=== PATIENT | female | born 1960 | race Caucasian/White ===

== ENCOUNTER 2022-04-11 09:39 | Emergency (ER) | payer BC, SELFPAY ==
[2022-04-11 09:44] VITALS: BP 130/89; PULSE 78; TEMP 36.5; O2SAT 96; BMI 34.0
[2022-04-11 09:45] VITALS: BP 130/89; PULSE 67; O2SAT 96
--- NOTE | 2022-04-11 10:06 | CRLHL7_ITS ---
For Patients: As a result of the Cures Act, medical imaging exams and procedure reports are released immediately into your electronic medical record. You may view this report before your referring provider. If you have questions, please contact your health care provider. Indication: Injury, pain Technique: Right knee 3 views Comparison: 02/07/2022 Findings: ACL reconstruction hardware intact. Fixation screw in the distal femur also intact. Chronic ossicle laterally measuring 1.3 cm. Medial and lateral compartment spurring. Patellofemoral narrowing and spurring. No large effusion. No fracture. Chronic hypertrophic changes associated with the anterior proximal tibia is similar. Impression: No sign of acute injury. Dictated by Lucho Julio MD @ 04/11/2022 10:55:22 AM (Electronically Signed)
--- NOTE | 2022-04-11 10:09 | ED_ITS ---
HPI - Extremity Injury (Lower) General Date Seen: 04/11/22 Chief Complaint: Extremity Pain/Injury, Lower Stated Complaint: R knee pain Time Seen by Provider: 04/11/22 09:41 Source: patient Mode of arrival: ambulatory Limitations: no limitations History of Present Illness HPI Narrative: Patient is the 61-year-old very pleasant lady who presents here with a right knee injury that occurred while she was getting out of auto mobile 3 days ago. She describes a twist valgus type mechanism, with pain ever since she has noted a little swelling in her knee, the pain seems to be little worse at night time, with a throbbing type component. She has tried ibuprofen, and then 1 dose of Aleve this morning with really no improvement. 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 Past history of 2 previous ACL repairs on this knee, with a tear and subsequent instability of her right knee. She is due to undergo a total knee replacement in the fall by . complaint: knee injury Onset (ago): day(s) Injury: Right: knee Exacerbating factors: weight bearing and movement Associated symptoms: able to partially bear weight and ambulatory Other symptoms: none Treatments prior to arrival: cold therapy and NSAIDS Related Data Home Medications Medication Instructions Recorded Confirmed losartan 25 mg tablet 25 mg PO QDAY 03/03/22 citalopram 40 mg tablet 40 mg PO QDAY 03/04/22 03/04/22 Previous Rx's Medication Instructions Recorded prednisone 20 mg tablet 20 mg PO BID #10 tabs 04/11/22 Allergies Allergy/AdvReac Type Severity Reaction Status Date / Time shellfish derived Allergy Intermediate Vomiting Verified 03/04/22 15:56 Review of Systems Status of ROS: Reports: 6 or more systems reviewed and unremarkable except as noted in History and below [facility] Surgical History History of bunionectomy S/P ACL repair Family History Other Alzheimer's dementia Diabetes Social History Smoking Status: Never smoker Do you use any of these nicotine containing products: None Second hand tobacco smoke exposure: No How often do you have a drink containing alcohol: monthly or less How many standard drinks containing alcohol do you have on a typical day: 1 or 2 How often do you have six or more drinks on one occasion: Never AUDIT-C Alcohol total score: 1 Non-prescribed substance use: denies use Exam Narrative: Exam Narrative: Examination reveals a lady in no apparent distress, sitting talking to me normally, there is obvious swelling of her right knee, I would describe it as moderate, her range of motion of her right knee is to 90? on flexion, extensions full, which she says is not terribly abnormal for which she normally has. She has some tenderness along the joint line notable, her MCL and LCL seem intact, with no give way, ACL is slippery, popliteal fossa is normal, popliteal pulse, posterior tibial pulse are normal, minimal edema noted of the lower leg, hip has excellent range of motion, sensation is normal also. There is no rashes or injury bruising noted. Const: Vital Signs, click to edit/add: Vital Signs - 24 hr 04/11/22 09:44 04/11/22 09:45 Temperature 97.7 F Pulse Rate [Right Pulse Oximeter] 78 67 Blood Pressure [Le ft Upper Arm] 130/89 130/89 Pulse Oximetry 96 96 Oxygen Delivery Me thod Room Air Room Air Documenting provider has reviewed patient's vital signs: yes Common normals: no apparent distress Course Course Hospital Course: I discussed with this nice lady that a knee immobilizer would be helpful, she did not want crutches, I think that is reasonable given she is bearing weight on it, I think use of Aleve twice daily would be important, I did offer her prednisone and gave her prescription, she can not see how it works over the course of the weekend, and fill if as needed. She already has appointment with Orthopedics on Thursday, I have encouraged her to keep this appointment consideration of an injection, Vital Signs Vital signs: Initial Vital Signs Temperature 97.7 F 04/11/22 09:44 Temperature Source Temporal Artery Scan 04/11/22 09:44 Pulse Rate 78 04/11/22 09:44 Blood Pressure 130/89 04/11/22 09:44 Blood Pressure Mean 102 04/11/22 09:44 Blood Pressure Position Sitting 04/11/22 09:44 Pulse Oximetry 96 04/11/22 09:44 Oxygen Delivery Method 04/11/22 09:44 Vital Signs Temperature 97.7 F 04/11/22 09:44 Pulse Rate 78 04/11/22 09:44 Blood Pressure 130/89 04/11/22 09:44 Pulse Oximetry 96 04/11/22 09:44 Oxygen Delivery Method 04/11/22 09:44 Temperature 97.7 F 04/11/22 09:44 Pulse Rate 67 04/11/22 09:45 Blood Pressure 130/89 04/11/22 09:45 Pulse Oximetry 96 04/11/22 09:45 Oxygen Delivery Method 04/11/22 09:45 MDM - Extremity Injury (Lower) MDM Narrative Medical decision making narrative: Consideration of worsening of her ACL, is done, fracture, LCL MCL and PCL strains are also consider, along with other considerations such as DVT or arterial insufficiency. We will go ahead with an x-ray of her right knee, and discussed with her options available. Differential Diagnosis Differential diagnosis: Likely acute internal derangement of knee Medical Records Attestation: I reviewed the patient's medical records. Lab Data Attestation: I reviewed the patient's lab results. Imaging Data Xray: Attestation: I have reviewed the pertinent imaging results. My impression: Chronic changes no evidence of acute fracture Radiologist's impression: Chronic changes noted evidence of acute fracture Discharge Plan Discharge Clinical Impression: Osteoarthritis of right knee Right knee sprain Qualifiers: Encounter type: initial encounter Patient Disposition: Home, Self-Care Condition: Stable Instructions: Knee Sprain (DC), Osteoarthritis (DC) Additional Instructions: Home rest use of knee immobilizer, it is most effective if use it when you sleep also, as you do move your knee, but I can understand if you want to take this off. Icing it 2 to 3 times a day would also be helpful along with the ibuprofen, prescription given for prednisone that you can use if you needed otherwise going in to see orthopedics on Thursday with your appointment would be advantageous to get an injection. Prescriptions: New prednisone 20 mg tablet 20 mg PO BID Qty: 10 0RF No Action losartan 25 mg tablet 25 mg PO QDAY citalopram 40 mg tablet 40 mg PO QDAY Follow Up/Referrals: Provider,Not a Local [Primary Care Provider] - Stand Alone Forms: [employer] Info Instructions
[2022-04-11 11:25] VITALS: BP 109/75; PULSE 65; O2SAT 97
--- NOTE | 2022-04-11 11:26 | ED.NURSE ---
22 Knee Immobilizer applied to pt R knee. Pt tolerates well.
== END 2022-04-11 11:36 | disposition home or self-care (01) ==
PROVIDERS: Emergency Provider Family Medicine
DX: M17.11 Unilateral primary osteoarthritis, right knee (principal)
CPT/HCPCS: 73562; 99282; 99283

== ENCOUNTER 2022-04-22 14:01 | Outpatient (CLI) | payer BC, SELFPAY | END 2022-04-22 14:02 | disposition home or self-care (01) | LOC: CT 14:02 | PROVIDERS: Visit Provider Orthopaedic Surgery Sports Medicine | DX: M17.11 Unilateral primary osteoarthritis, right knee (principal) | CPT/HCPCS: 73700 ==

== ENCOUNTER 2022-06-18 10:00 | Day surgery (SDC) | payer BC, SELFPAY ==
[2022-06-18] VITALS (52 sets, daily range): BP systolic 87–153; BP diastolic 58–101; PULSE 64–89; RESP 12–16; TEMP 36.1–36.6; O2SAT 89–98; BMI 34.1
[2022-06-18] MEDS: LACTATED RINGERS 1000 ML 1,000 ML 100 ML IV ×2 (11:21→14:35)
[2022-06-18] MEDS: SODIUM CHLORIDE 0.9 % (FLUSH) 10 ML SYRINGE IVF (11:21)
[2022-06-18] MEDS: OXYCODONE (CR) 10 MG TAB.ER.12H PO (11:36)
[2022-06-18] MEDS: CELECOXIB 200 MG CAPSULE PO ×2 (11:36→21:07)
[2022-06-18] MEDS: ACETAMINOPHEN 500 MG TABLET 1000 MG PO ×3 (11:36→23:41)
--- NOTE | 2022-06-18 12:42 | SUR.PREOP ---
TIME?OUT:?1243 PT/RN/MDA?VERIFICATION?OF?SURGICAL?SITE,?PROCEDURE,?AND?CONSENT OBTAINED?PRIOR?TO?INVASIVE?PROCEDURE.
[2022-06-18] MEDS: MIDAZOLAM HCL 1 MG/ML inj IVP (12:44)
[2022-06-18] MEDS: fentaNYL 100 MCG/2 ML inj IVP (12:44)
--- NOTE | 2022-06-18 12:51 | W.PM.NB ---
Nerve Block Nerve Block Time Seen by Provider: 12:47 Date Seen: 06/18/22 Type of block requested by surgeon for post-operative analgesia: adductor canal Side: right Time out performed: Yes Verification of patient name: Yes Verification of date of : Yes Site marking: site marked Name of person performing procedure: Thanh Continuous monitoring Was continuous monitoring of O2 sat, B/P, equipment monitor phototypesetting, recorded every 15 minutes?: Yes Procedure Checklist: sterile prep, needles and gloves Ultrasound guided. Images saved: Yes Medications given in 5ml increments after negative aspiration: Ropivicaine %: 0.5 mL: 20 Needle gauge: 20 Decadron (mg): 10 Precedex (mcg): 25 Patient tolerated procedure well: Yes Additional comments: Needle noted adjacent to nerve Block Charges Block Charge (with Pro Fee): Femoral Nerve Use of Ultrasound Machine for Block: Yes- US Guidance/pain block
--- NOTE | 2022-06-18 12:51 | W.PM.NB ---
Nerve Block Nerve Block Time Seen by Provider: 12:47 Date Seen: 06/18/22 Type of block requested by surgeon for post-operative analgesia: geniculars Side: right Time out performed: Yes Verification of patient name: Yes Verification of date of : Yes Site marking: site marked Name of person performing procedure: Thanh Continuous monitoring Was continuous monitoring of O2 sat, B/P, dispatcher tugboat, recorded every 15 minutes?: Yes Procedure Checklist: sterile prep, needles and gloves Medications given in 5ml increments after negative aspiration: Ropivicaine %: 0.5 mL: 9 Needle gauge: 25 Patient tolerated procedure well: Yes Block Charges Block Charge (with Pro Fee): Genicular Nerve Block Use of Ultrasound Machine for Block: No
[2022-06-18] MEDS: CEFAZOLIN 2 GM in 0.9 % SODIUM CHLORIDE Mini-bag 100 ML IVPB ×2 (13:55→20:49)
--- NOTE | 2022-06-18 13:59 | CRLHL7_ITS ---
For Patients: As a result of the Cures Act, medical imaging exams and procedure reports are released immediately into your electronic medical record. You may view this report before your referring provider. If you have questions, please contact your health care provider. Indication: POST-OP RIGHT TKA Technique: Two views right knee Findings/Impression: Hardware from a right total knee arthroplasty is in satisfactory position. Bone alignment is normal. No sign of acute fracture. Postop changes are within normal limits. Dictated by Lucho Julio MD @ 06/19/2022 9:17:22 AM (Electronically Signed)
[2022-06-18] MEDS: TRANEXAMIC ACID 100 MG/ML INJ 1000 MG IV (14:10)
--- NOTE | 2022-06-18 16:00 | PM.ORPRC ---
Procedure Note Date of procedure: 06/18/22 Procedure: PREOPERATIVE DIAGNOSIS: 1. Right knee osteoarthritis, secondary, severe 2. Right knee retained deep implant (screws from prior ACL reconstruction) POSTOPERATIVE DIAGNOSIS: 1. Right knee osteoarthritis, secondary, severe 2. Right knee retained deep implant (screws from prior ACL reconstruction) PROCEDURE: 1. Right total knee arthroplasty 2. Right knee retained deep implant SURGEON: Arturo Hahn MD. IRON WORKER FOREMAN: Nash Whiting PA-C - Of note, a skilled fundraising assistant was critical for this case to aid in patient positioning, tissue retraction, limb manipulation/positioning, and closure. ANESTHESIA: Spinal anesthetic IMPLANTS: DePuy J&J all cemented TKA - Attune PS femur size 6 narrow, size 5 tibia, 5 poly spacer, 35 mm patella TOURNIQUET: 90 min at 300 torr EBL: 50 ml COMPLICATIONS: None evident INDICATIONS: The patient is a pleasant 61-year-old female who sustained an ACL injury in the remote past. She underwent ACL reconstruction with metallic screws in both the tibia and femur as well as a backup post on the femur distal diaphysis. Given these screws, computer-assisted 3D printed guide for a jig was planned. She had significant pain as well and this was consistent with a secondary osteoarthrosis this ridge knee. Given the deformity, the dysfunction, and the pain, as well as the failure of nonoperative management, recommendation was made for surgery. FINDINGS: Full-thickness cartilage loss lateral compartment with significant osteophytes diffusely about the knee. Loose bodies were seen posterior knee. The bone was notably soft, softer than expected for her age category. The metallic screw on the tibial side was encountered during the tibial cut and prep and had to be removed. The 2 screws in the femoral side were not encountered and therefore not removed DESCRIPTION OF PROCEDURE: Following a thorough discussion of risks, benefits, and alternatives consent was obtained and the right knee was marked. The patient was brought to the operating room and placed supine on the operating table. Induction of anesthesia was undertaken. 2 g IV Ancef and 1 g tranexamic acid was administered within 1 hr of incision preoperatively. Proper time-out was performed identifying proper patient, site, procedure. The operative extremity was prepped and draped in the appropriate sterile fashion using ChloraPrep after the patient was positioned supine with all bony prominences well padded. A longitudinal, anterior, midline skin incision was made starting approximately 3cm proximal to the superior pole of the patella and advanced distal to the tibial tubercle. A median parapatellar arthrotomy was created. A medial subperiosteal sleeve was created with knife, silva elevator and curved osteotome. The retropatellar fatpad was resected and the synovium in the suprapatellar pouch excised to visualize the anterior femoral cortex. Femoral preparation was performed via an intramedullary guide. Step drill allowed access into the femoral canal. The distal cutting guide created from a 3D printed jig based on a CT scan preoperatively was placed with appropriate distal femoral cut. Thereafter, the 6 block was applied in the form 1 cutting block allowed us to shape the rest the femur accordingly. The box cut was then created and the trial implant inserted to confirm appropriate fit. We turned our attention to the proximal tibia. Extramedullary guide was utilized for cutting with the goal of being 90 degree cut from the mechanical axis of the tibia in the varus/valgus plane utilizing tibial crest as the primary alignment. Initially a 2 mm resection was performed from the medial tibial plateau. Ultimately, balancing was achieved in both flexion and extension in both varus and valgus. Of note, the metallic tibial screw from the prior ACL reconstruction was encountered during the tibial prep. We were able to insert a guide pin from the cut surface which just grazed the implant. This guide pin then penetrated out the proximal tibia allowing us to insert the screwdriver and advanced the screw into the knee joint with the cut was. Once this was removed, the hernandez of the tunnel were curetted. Thereafter, the knee was able to achieve full extension as well comfortably. The patella was initially measured and found have a thickness of 24 mm. It was resected back to approximately 14.5 mm. It was sized to be a best fit with as noted above. This was drilled, trial placed. All trials were placed and found to have an excellent stability and balance. At this stage, trial implants were removed, the knee was thoroughly irrigated with normal saline, and the cement was mixed. After irrigation, the knee was thoroughly dried, and cement placed, with the real tibial and femoral implants placed along with the patella. Trial poly spacer was placed and confirmed to have excellent range of motion and full extension, and the real poly spacer opened and inserted. All extra cement was removed, and a 3 min Betadine soak performed. Finally, a final irrigation round with normal saline was performed. Closure performed with 0 Vicryl and #0 Stratafix for the quad tendon/retinaculum. 2-0 Vicryl for the subcutaneous and 4-0 Stratafix for subcuticular closure. Dressings were applied and the patient was awoken from anesthesia after the tourniquet deflated and transferred the PACU in stable condition. A skilled fundraising assistant was critical for this case to aid in patient positioning, tissue retraction, bone exposure, limb manipulation/positioning, patient safety, and closure. PLAN: 1. Weight bear as tolerated operative extremity. 2. 23 hr perioperative antibiotics. 3. Ice. 4. PT/OT consults for ambulation assistance/mobility education. 5. Social work consult for discharge planning. 6. DVT prophylaxis with at SCDs, Moose Hose, and aspirin twice daily.
--- NOTE | 2022-06-18 16:37 | W.ANESCHARGE ---
Anesthesia Charges Start Date/Time Anesthesia Start Date: 06/18/22 Anesthesia Start Time: 13:44 Stop Date/Time Anesthesia Stop Date: 06/18/22 Anesthesia Stop Time: 16:38 Summary Emergency: No
--- NOTE | 2022-06-18 16:48 | W.ANESCHARGE ---
Anesthesia Charges Start Date/Time Anesthesia Start Date: 06/18/22 Anesthesia Start Time: 13:44 Stop Date/Time Anesthesia Stop Date: 06/18/22 Anesthesia Stop Time: 16:38 Summary Emergency: No
[2022-06-18] MEDS: fentaNYL 100 MCG/2 ML inj 50 MCG IVP (16:59)
[2022-06-18] MEDS: HYDROmorphone 0.5 mg/0.5 ml inj IVP (17:41)
[2022-06-18] MEDS: OXYCODONE 5 MG TABLET PO ×3 (18:12→23:41)
--- NOTE | 2022-06-18 19:44 | PC.NURSE ---
End of shift-- Pleasant and cooperative, alert and oriented patient arrived from PACU at approximately 1730. VSS and pt is afebrile. SPO2 maintained >90% on RA. She c/o pain in her right knee which she rated as high as 7 out of 10 and was given Dilaudid, Oxycodone and Tylenol and stated relief. Dressing to right knee is C/D/I. Pt continues to have lingering numbness in bilateral LE, but CMS otherwise WNL. Cryocuff in place. LS CTA. BS+ x4, pt denied nausea and tolerated seth chelle and crackers without difficulty. Daughter was at bedside and appears loving and supportive. Report to JIGNESH Atwood and all questions answered.
[2022-06-18] MEDS: SENNOSIDES 1 TAB TABLET 2 TAB PO (20:39)
[2022-06-18] MEDS: ASPIRIN 81 MG TABLET EC PO (20:39)
[2022-06-18] MEDS: LACTATED RINGERS 1000 ML 1,000 ML 75 ML IV (20:59)
[2022-06-19] MEDS: OXYCODONE 5 MG TABLET PO ×2 (02:43→05:40)
[2022-06-19 02:46] VITALS: BP 131/84; PULSE 76; RESP 16; TEMP 36.4; O2SAT 94
[2022-06-19] MEDS: CEFAZOLIN 2 GM in 0.9 % SODIUM CHLORIDE Mini-bag 100 ML IVPB ×2 (04:19→11:38)
--- NOTE | 2022-06-19 04:33 | PC.NURSE ---
[id number]: patient up to ambulate with assist X1 walker and gait belt, tolerates well. pain has been controlled with PRN meds, patient performs IS independently, tolerates regular diet, no nausea reported. Mepilex to incision c/d/i
[2022-06-19] MEDS: ACETAMINOPHEN 500 MG TABLET 1000 MG PO (05:40)
[2022-06-19 07:00] LABS: Basophils Percent Auto 0.1 % (0.0-3.0); Hematocrit 40.7 % (33.0-51.0); Hemoglobin* 13.2 gm/dL (12.0-16.0); Mean Corpuscular HGB Conc 32 gm/dL (32-36); Mean Corpuscular Hemoglobin 30 pg (26-34); Mean Corpuscular Volume 91 fL (80-100); Monocytes Percent Auto 6.8 % (0.0-11.0); Neutrophils Percent Auto 75.7 % (42.0-72.0); Platelet Count* 320 K/uL (140-440); RDW Coefficient of Variation % 12.5 % (11.5-15.5); Red Blood Count 4.48 m/uL (4.00-5.20); White Blood Count* 14.64 K/uL (4.50-11.00)
[2022-06-19 07:04] LABS: Slide Review Reflex No
[2022-06-19 07:13] LABS: Potassium* 4.8 mmol/L (3.6-5.1); Sodium* 137 mmol/L (135-149)
[2022-06-19 07:16] LABS: Creatinine* 0.6 mg/dL (0.5-1.5); Est. Creatinine Clearance* 52.49; Estimated Glomerular Filt Rate 101 ml/min
[2022-06-19 07:17] LABS: Blood Urea Nitrogen* 17 mg/dL (7-30)
[2022-06-19] MEDS: SENNOSIDES 1 TAB TABLET 2 TAB PO (09:25)
[2022-06-19] MEDS: ASPIRIN 81 MG TABLET EC PO (09:28)
[2022-06-19] MEDS: CITALOPRAM HYDROBROMIDE 20 MG TABLET 40 MG PO (09:29)
[2022-06-19] MEDS: CELECOXIB 200 MG CAPSULE PO (09:30)
--- NOTE | 2022-06-19 11:01 | PC.NURSE ---
VS this am 128/78, 99%, 77, 18, 98. Plan change to [place] for pain management per Nash GABRIEL. PT eval completed.
[2022-06-19 11:33] LABS: Immature Granulocytes Pct Auto 0.1 %
[2022-06-19] MEDS: HYDROCODONE-ACETAMIN 5-325 MG 1 TAB PO (11:39)
--- NOTE | 2022-06-19 13:51 | P.ORPN_ITS ---
Subjective Subjective Date Seen: 06/19/22 Principal diagnosis: Status postop day 1 right total knee arthroplasty Interval history: Patient reports doing well. No acute events over night. Pain managed with scheduled /PRN medications and ice, reporting pain 6/10. DVT prophylaxis 81 mg aspirin by mouth twice daily, bilateral knee high Moose stockings, and SCDs. Denies fevers, chills, aches, N/V, CP, SOB/KWONG, tachycardia, or lightheadedness. She would like to try a different pain medication if possible to see if this treats her pain better. Ortho Exam Narrative Exam Narrative: -Patient appears comfortable; no apparent acute distress; she is talking in complete sentences and does not appear to be in distress or pain bowl rating her pain 6/10 -Alert and oriented times 3 -Operative knee mildly swollen; soft tissues supple; no ecchymosis; no erythematous streaking Warmth appropriate -Surgical dressing clean, dry, intact; no drainage -Bilateral calfs soft; no significant swelling, edema, tenderness, erythema, discoloration, warmth, or palpable cords -2+ DP/PT pulses, intact dermatomes and myotomes distally (5/5 strength) Const Vital Signs, click to edit/add: Vital Signs - 24 hr 06/18/22 17:04 06/18/22 17:05 06/18/22 16:38 Temperature 97.6 F Pulse Rate 70 79 Pulse Rate [Right Pulse Oximeter] Respiratory Rate 14 12 Blood Pressure 126/81 124/83 109/75 Blood Pressure [Left Arm] Blood Pressure [Right Arm] Pulse Oximetry 97 97 96 Oxygen Delivery Method Room Air Room Air 06/18/22 16:39 06/18/22 16:40 06/18/22 16:41 Temperature 97.6 F Pulse Rate 74 71 71 Pulse Rate [Right Pulse Oximeter] Respiratory Rate 14 Blood Pressure 115/70 115/70 Blood Pressure [Left Arm] Blood Pressure [Right Arm] Pulse Oximetry 97 98 96 Oxygen Delivery Method Room Air 06/18/22 16:42 06/18/22 16:43 06/18/22 16:44 Temperature Pulse Rate 70 72 69 Pulse Rate [Right Pulse Oximeter] Respiratory Rate Blood Pressure Blood Pressure [Left Arm] Blood Pressure [Right Arm] Pulse Oximetry 97 96 97 Oxygen Delivery Method 06/18/22 16:45 06/18/22 16:46 06/18/22 16:47 Temperature Pulse Rate 73 68 68 Pulse Rate [Right Pulse Oximeter] Respiratory Rate Blood Pressure 109/74 Blood Pressure [Left Arm] Blood Pressure [Right Arm] Pulse Oximetry 96 96 96 Oxygen Delivery Method Room Air 06/18/22 16:48 06/18/22 16:49 06/18/22 16:50 Temperature Pulse Rate 66 65 68 Pulse Rate [Right Pulse Oximeter] Respiratory Rate Blood Pressure Blood Pressure [Left Arm] Blood Pressure [Right Arm] Pulse Oximetry 96 97 98 Oxygen Delivery Method 06/18/22 16:51 06/18/22 16:52 06/18/22 16:53 Temperature Pulse Rate 68 67 66 Pulse Rate [Right Pulse Oximeter] Respiratory Rate Blood Pressure 121/75 Blood Pressure [Left Arm] Blood Pressure [Right Arm] Pulse Oximetry 98 97 97 Oxygen Delivery Method 06/18/22 16:54 06/18/22 16:55 06/18/22 16:56 Temperature Pulse Rate 66 77 72 Pulse Rate [Right Pulse Oximeter] Respiratory Rate Blood Pressure 126/81 Blood Pressure [Left Arm] Blood Pressure [Right Arm] Pulse Oximetry 98 97 97 Oxygen Delivery Method 06/18/22 16:57 06/18/22 16:58 06/18/22 16:59 Temperature Pulse Rate 69 69 65 Pulse Rate [Right Pulse Oximeter] Respiratory Rate Blood Pressure Blood Pressure [Left Arm] Blood Pressure [Right Arm] Pulse Oximetry 98 98 98 Oxygen Delivery Method 06/18/22 17:00 06/18/22 17:01 06/18/22 17:02 Temperature Pulse Rate 67 68 67 Pulse Rate [Right Pulse Oximeter] Respiratory Rate Blood Pressure 124/81 Blood Pressure [Left Arm] Blood Pressure [Right Arm] Pulse Oximetry 98 98 95 Oxygen Delivery Method 06/18/22 17:03 06/18/22 17:04 06/18/22 17:05 Temperature Pulse Rate 67 74 70 Pulse Rate [Right Pulse Oximeter] Respiratory Rate Blood Pressure Blood Pressure [Left Arm] Blood Pressure [Right Arm] Pulse Oximetry 97 98 95 Oxygen Delivery Method 06/18/22 17:06 06/18/22 17:07 06/18/22 17:08 Temperature Pulse Rate 75 69 71 Pulse Rate [Right Pulse Oximeter] Respiratory Rate Blood Pressure 124/83 Blood Pressure [Left Arm] Blood Pressure [Right Arm] Pulse Oximetry 96 95 91 Oxygen Delivery Method 06/18/22 17:09 06/18/22 17:26 06/18/22 17:30 Temperature 97.9 F 97.9 F Pulse Rate 74 67 Pulse Rate [Right Pulse Oximeter] 64 Respiratory Rate 16 16 Blood Pressure Blood Pressure [Left Arm] 125/90 H Blood Pressure [Right Arm] 149/96 H Pulse Oximetry 89 90 Oxygen Delivery Method Room Air Room Air 06/18/22 17:45 06/18/22 18:00 06/18/22 18:15 Temperature 97.9 F 97.0 F L Pulse Rate Pulse Rate [Right Pulse Oximeter] 64 76 84 Respiratory Rate 16 16 16 Blood Pressure Blood Pressure [Left Arm] Blood Pressure [Right Arm] 147/95 H 139/85 153/101 H Pulse Oximetry 90 92 93 Oxygen Delivery Method Room Air Room Air Room Air 06/18/22 19:00 06/18/22 19:30 06/18/22 20:30 Temperature 97.9 F 97.9 F 97.8 F Pulse Rate Pulse Rate [Right Pulse Oximeter] 77 82 88 Respiratory Rate 16 16 16 Blood Pressure Blood Pressure [Left Arm] Blood Pressure [Right Arm] 149/94 H 143/90 H 142/83 H Pulse Oximetry 95 95 95 Oxygen Delivery Method Room Air Room Air Room Air 06/18/22 21:30 06/18/22 22:38 06/19/22 02:46 Temperature 97.8 F 97.6 F Pulse Rate 76 Pulse Rate [Right Pulse Oximeter] 89 78 Respiratory Rate 16 16 16 Blood Pressure 131/84 Blood Pressure [Left Arm] Blood Pressure [Right Arm] 148/90 H 141/81 H Pulse Oximetry 97 97 94 Oxygen Delivery Method Room Air Room Air Assessment and Plan Assessment and plan (1) Status post total knee replacement, right: Problem details: POD 1 right total knee arthroplasty Status: Acute Plan - Complete 23 hour perioperative antibiotics. - PT/OT consult for education and assistance. - Social work consult for discharge planning - Prescribed analgesics as needed - we will switch to [place] to see if this helps her. - DVT prophylaxis: 81 mg aspirin by mouth twice daily, bilateral knee high Moose Hose stockings and SCDs - Anticipation is for discharge to home with daughter 06/19/2022 if the patient remains medically stable, pain is controlled, and they are safe with mobilization. - spoke with nurse later in the day who states the patient wishes to stay with oxycodone verses the [place]. She was discharged with oxycodone.
--- NOTE | 2022-06-19 13:54 | PM.DS1 ---
DS: Providers Provider Date Seen: 06/19/22 Date of admission: Med/surg recovery 06/18/22 Primary care physician: Not a Local Provider Consults: 06/18/22 17:17 Consult to Occupational Therapy [CONS] Routine Comment: Reason(s) for OT Consult:: ADLs Prior to Discharge Any Restrictions?:: See Comment Comment: See nursing activity order for any restrictions. Consult to Physical Therapy [CONS] Routine Comment: Ambulate in the [place] today. Reason(s) for PT Consult:: TKA TX Protocol POD#0 Any Restrictions?:: See Comment Comment: See nursing activity order for any restrictions. Consult to Physician [CONS] Routine Comment: Consulting Provider: Hospitalists Has provider been notified: No Consult to Automated Cutting Machine Operator [CONS] Routine Comment: Reason for Consult:: Discharge Planning Needs Attending Physician on discharge: Arturo Hahn MD Date of Discharge: 06/19/22 DS: Diagnosis Discharge Diagnosis (1) Osteoarthritis of right knee: Status: Acute Problem details: Right knee osteoarthrosis, moderate-severe Status post ACL repair x2 (~27 and 25yrs ago, done elsewhere) with failed graft (2) Status post total knee replacement, right: Status: Acute Problem details: POD 1 right total knee arthroplasty DS: Summary Hospital Course Hospital Course: The patient has a history of right knee osteoarthritis, primary, severe. After appropriate preoperative evaluation, the patient underwent right total knee arthroplasty. Postoperatively given anticoagulation for deep vein thrombosis prophylaxis. They progressed to PT/OT and were felt ready and prepared for discharge to home with appropriate pain medication and anticoagulation medications. She was discharged on oxycodone as she felt the [place] was not helpful at the hospital. Time Spent with Patient Time attestation: Total time spent providing and/or coordinating discharge services: Exam Const: Vital Signs, click to edit/add: Vital Signs - 24 hr 06/18/22 17:04 06/18/22 17:05 06/18/22 16:38 Temperature 97.6 F Pulse Rate 70 79 Pulse Rate [Right Pulse Oximeter] Respiratory Rate 14 12 Blood Pressure 126/81 124/83 109/75 Blood Pressure [Le ft Arm] Blood Pressure [Ri ght Arm] Pulse Oximetry 97 97 96 Oxygen Delivery Me thod Room Air Room Air 06/18/22 16:39 06/18/22 16:40 06/18/22 16:41 Temperature 97.6 F Pulse Rate 74 71 71 Pulse Rate [Right Pulse Oximeter] Respiratory Rate 14 Blood Pressure 115/70 115/70 Blood Pressure [Le ft Arm] Blood Pressure [Ri ght Arm] Pulse Oximetry 97 98 96 Oxygen Delivery Me thod Room Air 06/18/22 16:42 06/18/22 16:43 06/18/22 16:44 Temperature Pulse Rate 70 72 69 Pulse Rate [Right Pulse Oximeter] Respiratory Rate Blood Pressure Blood Pressure [Le ft Arm] Blood Pressure [Ri ght Arm] Pulse Oximetry 97 96 97 Oxygen Delivery Me thod 06/18/22 16:45 06/18/22 16:46 06/18/22 16:47 Temperature Pulse Rate 73 68 68 Pulse Rate [Right Pulse Oximeter] Respiratory Rate Blood Pressure 109/74 Blood Pressure [Le ft Arm] Blood Pressure [Ri ght Arm] Pulse Oximetry 96 96 96 Oxygen Delivery Me thod Room Air 06/18/22 16:48 06/18/22 16:49 06/18/22 16:50 Temperature Pulse Rate 66 65 68 Pulse Rate [Right Pulse Oximeter] Respiratory Rate Blood Pressure Blood Pressure [Le ft Arm] Blood Pressure [Ri ght Arm] Pulse Oximetry 96 97 98 Oxygen Delivery Me thod 06/18/22 16:51 06/18/22 16:52 06/18/22 16:53 Temperature Pulse Rate 68 67 66 Pulse Rate [Right Pulse Oximeter] Respiratory Rate Blood Pressure 121/75 Blood Pressure [Le ft Arm] Blood Pressure [Ri ght Arm] Pulse Oximetry 98 97 97 Oxygen Delivery Me thod 06/18/22 16:54 06/18/22 16:55 06/18/22 16:56 Temperature Pulse Rate 66 77 72 Pulse Rate [Right Pulse Oximeter] Respiratory Rate Blood Pressure 126/81 Blood Pressure [Le ft Arm] Blood Pressure [Ri ght Arm] Pulse Oximetry 98 97 97 Oxygen Delivery Me thod 06/18/22 16:57 06/18/22 16:58 06/18/22 16:59 Temperature Pulse Rate 69 69 65 Pulse Rate [Right Pulse Oximeter] Respiratory Rate Blood Pressure Blood Pressure [Le ft Arm] Blood Pressure [Ri ght Arm] Pulse Oximetry 98 98 98 Oxygen Delivery Me thod 06/18/22 17:00 06/18/22 17:01 06/18/22 17:02 Temperature Pulse Rate 67 68 67 Pulse Rate [Right Pulse Oximeter] Respiratory Rate Blood Pressure 124/81 Blood Pressure [Le ft Arm] Blood Pressure [Ri ght Arm] Pulse Oximetry 98 98 95 Oxygen Delivery Me thod 06/18/22 17:03 06/18/22 17:04 06/18/22 17:05 Temperature Pulse Rate 67 74 70 Pulse Rate [Right Pulse Oximeter] Respiratory Rate Blood Pressure Blood Pressure [Le ft Arm] Blood Pressure [Ri ght Arm] Pulse Oximetry 97 98 95 Oxygen Delivery Me thod 06/18/22 17:06 06/18/22 17:07 06/18/22 17:08 Temperature Pulse Rate 75 69 71 Pulse Rate [Right Pulse Oximeter] Respiratory Rate Blood Pressure 124/83 Blood Pressure [Le ft Arm] Blood Pressure [Ri ght Arm] Pulse Oximetry 96 95 91 Oxygen Delivery Me thod 06/18/22 17:09 06/18/22 17:26 06/18/22 17:30 Temperature 97.9 F 97.9 F Pulse Rate 74 67 Pulse Rate [Right Pulse Oximeter] 64 Respiratory Rate 16 16 Blood Pressure Blood Pressure [Le ft Arm] 125/90 H Blood Pressure [Ri ght Arm] 149/96 H Pulse Oximetry 89 90 Oxygen Delivery Me thod Room Air Room Air 06/18/22 17:45 06/18/22 18:00 06/18/22 18:15 Temperature 97.9 F 97.0 F L Pulse Rate Pulse Rate [Right Pulse Oximeter] 64 76 84 Respiratory Rate 16 16 16 Blood Pressure Blood Pressure [Le ft Arm] Blood Pressure [Ri ght Arm] 147/95 H 139/85 153/101 H Pulse Oximetry 90 92 93 Oxygen Delivery Me thod Room Air Room Air Room Air 06/18/22 19:00 06/18/22 19:30 06/18/22 20:30 Temperature 97.9 F 97.9 F 97.8 F Pulse Rate Pulse Rate [Right Pulse Oximeter] 77 82 88 Respiratory Rate 16 16 16 Blood Pressure Blood Pressure [Le ft Arm] Blood Pressure [Ri ght Arm] 149/94 H 143/90 H 142/83 H Pulse Oximetry 95 95 95 Oxygen Delivery Me thod Room Air Room Air Room Air 06/18/22 21:30 06/18/22 22:38 06/19/22 02:46 Temperature 97.8 F 97.6 F Pulse Rate 76 Pulse Rate [Right Pulse Oximeter] 89 78 Respiratory Rate 16 16 16 Blood Pressure 131/84 Blood Pressure [Le ft Arm] Blood Pressure [Ri ght Arm] 148/90 H 141/81 H Pulse Oximetry 97 97 94 Oxygen Delivery Me thod Room Air Room Air DS: Data Data Completed and Pending Labs on day of discharge: Labs from last 24 hours 06/19/22 06/19/22 06:34 06:34 WBC 14.64 H RBC 4.48 Hgb 13.2 Hct 40.7 MCV 91 MCH 30 MCHC 32 RDW Coeff of Jeanie 12.5 Plt Count 320 Neut % (Auto) 75.7 H Lymph % (Auto) 17.0 L [place] % (Auto) 6.8 Eos % (Auto) 0.0 Baso % (Auto) 0.1 Neut # (Auto) 11.10 H Lymph # (Auto) 2.50 [place] # (Auto) 1.00 H Eos # (Auto) 0.00 Baso # (Auto) 0.00 Abs Immat Gran (auto) 0.00 Imm/Tot Granulo (auto) 0.1 Sodium 137 Potassium 4.8 BUN 17 Creatinine 0.6 Estimated Creat Clear 52.49 Estimated GFR 101 Discharge Plan Discharge Disposition: Home, Self-Care Discharging Surgeon: Arturo Hahn Follow-Up Appointment: 1 week PO with THEODORE Prescriptions: New acetaminophen 500 mg capsule 500 - 1,000 mg PO Q6H MDD 4000mg PRNQty: 100 0RF sennosides-docusate sodium [Senna-S] 8.6-50 mg tablet 1 - 4 tab-cap PO BID PRN (Reason: constipation) Qty: 60 0RF Rx Instructions: Hold medication if experiencing loose stools. aspirin 81 mg tablet,delayed release (DR/EC) 81 mg PO BID Qty: 60 0RF Rx Instructions: Medication to help prevent blood clots postoperatively; take TWICE daily. celecoxib 100 mg capsule 100 mg PO BID Qty: 60 0RF oxycodone 5 mg tablet 2.5 - 5 mg PO Q4-6H MDD 6 PRN (Reason: pain) Qty: 42 0RF Rx Instructions: Take as needed for postop pain: 2.5mg mild pain, 5mg moderate-severe pain; wean as tolerated. Continued losartan 25 mg tablet 25 mg PO DAILY ouuthjqudyx-utbirdldl-qsf C-Mn [Glucosamine Chondroitin MaxStr] 500-400 mg capsule 1 cap PO DAILY omega 5-ojt-npw-fish oil [Fish Oil] 1,000 mg (120 mg-180 mg) capsule 1 cap PO DAILY vitamin B complex [Vitamins B Complex] Capsule 1 cap PO DAILY cholecalciferol (vitamin D3) 125 mcg (5,000 unit) capsule 125 mcg PO DAILY citalopram 40 mg tablet 40 mg PO DAILY Label Comments: TAKE 1 TABLET BY MOUTH EVERY MORNING. Activity Level: Activity as Tolerated, Weight Bearing as Tolerated, Use Cane and Use Walker Discharge Diet: Regular Patient Instructions: Acetaminophen (By mouth), Aspirin (By mouth), Oxycodone, Rapid Release (By mouth), Celecoxib (By mouth), Senna (By mouth), Surgical Site Infections (DC) Additional Instructions: Wound: ?Do not remove original dressing; we will remove this at first postop visit in 1 week. Only remove dressing if integrity is in question. ?No immersing wound in water; showering okay; light scrub with your hand and body soap, rinse, dab dry ?Sutures are under the skin, will dissolve; allow surgical glue to come off naturally; do not scrub the wound or apply ointments/lotions ?Call our office with any redness that streaks, excessive drainage from the wound, or wound gapping. Ice/Elevate: ?Ice as needed for swelling and discomfort (cryocuff or ice pack); elevate frequently above the heart ROBERT socks: ?Wear for 1 month, remove for 1 hour 3 times per day ?These are frustrating to take on/off, but are important for blood clot prevention for 1 month after surgery Blood Clot Prevention (DVT): ?Medication: 81 mg aspirin by mouth twice daily (1 month) Driving: ?Do not drive while taking narcotic pain medication ?Anticipate 4-6 weeks no driving if operative leg is driving leg Dental: ?No elective dental work for 6 months post-op. If there is an urgent/emergent dental need, contact our office for an antibiotic prescription. Smoking/Alcohol: ?Do not smoke; do no drink alcohol especially when taking postoperative oral narcotic medication Seek Care from you Primary Care Provider if you experience the following issues in the postoperative phase and beyond: ?Bacterial infections such as: pneumonia, bacterial skin infection (cellulitis), UTI, high fever, chills unrelated to the operative body part - call your primary care physician urgently for treatment in hopes to protect your health and the metal implant. Referrals: ?PT, OT per patient preference - evaluate treat total knee arthroplasty protocol (gait training, ROM, ADLs) Follow up: ?Ortho surgeon follow-up in 6 weeks; repeat radiographs three views operative knee ?PA-Marlyn visit in 1 week *If there are any acute concerns regarding your surgery, please call our orthopedic clinic ([phone]) Forms: Work/Release Restrictions Follow-up: Provider,Not a Local [Primary Care Provider] - None Nash Whiting PA-C [Physician Ceramic Engineer] - 06/26/22 10:10 am Discharge Orders: Discharge Order (Routine); Ordered 06/19/22 Ordered By: Nash Whiting
--- NOTE | 2022-06-19 16:38 | PC.NURSE ---
Pt eval by Nash gill PA, PT and OT this am. Pain control discussed with bridget GABRIEL. Pt stated oxycodone makes me sleepy but doesn't really take the pain away. Pain 6 out of 10 at initial assessment. One [place] tried w/o significant relief prior to d/c paperwork. It didn't really make a difference in my pain level, I guess I will stick with oxycodone when I get home. Final dose of ATB infused per post op protocol. Pt and marta Davis verbalized understanding of d/c diagnosis, home meds, pain management plan, wound care, f/up appt and sx to report urgently to physician. Discharged via wheelchair to own home with personal belongings in her possession @ 13:21 PM. Marta Davis transported pt at time of discharge.
== END 2022-06-19 13:20 | disposition home or self-care (01) ==
LOC: OR 12:03 → MEDSURG 12:04
PROVIDERS: Visit Provider Orthopaedic Surgery Sports Medicine
PROC: (CPT 27447; principal; 2022-06-18 12:45)
DX: M17.5 Other unilateral secondary osteoarthritis of knee (principal)
CPT/HCPCS: 27447; 20680; 1402; 36415; 64447; 64454; 73560; 76942; 82565; 84132; 84295; 84520; 85025; 97110; 97116; 97162; 97165; 97535; A9270; C1776; J0690; J1100; J1170; J2250; J2405; J2704; J2795; J3010; J7120

== ENCOUNTER 2022-08-05 10:30 | Outpatient (RCR) | payer BC, SELFPAY ==
--- NOTE | 2022-04-24 09:15 | PT.OPEX ---
PT [place] Outpatient Eval PT [facility] Outpatient Eval Start: 03/19/22 07:19 Freq: Status: Active Protocol: Document 04/24/22 07:44 KLV (Rec: 04/24/22 08:46 KLV [id number]) E-signed By Teresa Gregory PT Physical Therapy Outpatient Evaluation Insurance Information Recert Due Date 06/23/22 Insurance Information/Comments [place] Medical Diagnosis Unilateral primary osteoarthritis, right knee Sprain of unspecified site of right knee Treating Diagnosis R knee pain, limited knee ROM, gross LE weakness, antalgic gait Referring Catrina Sierra Subjective Subjective Anny reports to PT with primary complaint of right knee pain following injury . She was getting out of her car when she twisted on her right knee and felt immediate, sharp pain. She was seen in ED 04/11, placed in knee immobilizer and advised to rest, elevate and ice. She followed up with Catrina Hood who fitted her with extra -large hinged knee brace which does provide a lot more stability and pain reduction. She is not walking with AD. She is inquiring about walking today. She was planning on having TKA this fall by Dr. Hahn and now scheduled for June 18, 2022. Goal is to prehab for upcoming surgery to optimize strength, ROM and recovery. PMH: 2 failed ACL reconstructions X-ray 04/11: ACL reconstruction hardware intact. Fixation screw in the distal femur also intact. Chronic ossicle laterally measuring 1.3 cm. Medial and lateral compartment spurring. Patellofemoral narrowing and spurring. No large effusion. No fracture. Chronic hypertrophic changes associated with the anterior proximal tibia is similar. 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 Previously has had 2 failed ACL repairs. Patient presents with expected limitations in knee ROM, pain, strength, proprioception. 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 Goal at this time is to optimize knee function/pain reduction and prepare for upcoming R TKA 06/18/22. Patient appears motivated to participate in PT and presents with good prognosis to improve mobility, strength, proprioception and return to functional activities with skilled physical therapy intervention. 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 Plan of Care Rehabilitation Potential Good Physical Therapy Goals Prior to 06/18/22: Demonstrate R knee ROM 0-115 with <2/10 pain Demonstrate appropriate gait pattern with FWW to utilize post surgery for optimal safety when ambulating Demonstrate ability to negotiate stairs using appropriate stair pattern post surgery for optimal safety when at home and in community Verbalize understanding of most appropriate home set up including needed equipment for optimal safety and recovery post surgery Be independent in HEP program to show ability to perform appropriate exercises post surgery Treatment Plan/Direct Interventions Gait Training,Ice/Cold/ Vasopneumatic,Joint Mobilization,Manual Therapy, Neuromuscular Re-ed,Self-Care/ Home Management,Therapeutic Activities,Therapeutic Exercises Frequency/Duration 3-4 sessions prior to surgery, re-eval and 1-2x/wk for 8 weeks following surgery Patient Will Be Discharged From Therapy Completion of LTG(s), Independent w/HEP, Independently Progressing Evaluation Billing Untimed Code Treatment Minutes 18 Complexity Low Certification Information Initial Certification Date 04/24/22 Ending Certification Date 06/23/22 Provider Signature Shows Agreement With POC & Medical Necessity Physician Comment/Change Comment or Changes Physician NPI Number #
--- NOTE | 2022-07-30 12:31 | PT.OP2DDNX ---
PT [place] Outpatient 2nd Diagnosis Daily Note PT [facility] Outpatient 2nd Diag Daily Note Start: 04/24/22 07:43 Freq: Status: Active Protocol: Document 07/30/22 07:32 KLV (Rec: 07/30/22 07:32 KLV [id number]) E-signed By Teresa Gregory, PT PT OP 2nd Diagnosis Daily Note Visit Information Note Type 2nd Diagnosis Daily Note, Recert/Progress Note Visit Number 10 Insurance Authorized Visits - Physician Authorized Visits as needed Insurance Information Recert Due Date 09/28/22 Insurance Name Medicaid Insurance Information/Comments medicaid Medical Diagnosis Unilateral primary osteoarthritis, right knee Sprain of unspecified site of right knee Treating Diagnosis R knee pain, limited knee ROM, gross LE weakness, antalgic gait Referring MD Catrina Torres/Arturo Hahn Subjective Subjective Anny discouraged today as she feels she has had a setback in regards to mobility and pain. She does report that she has been on her feet quite a bit with work and in general trying to be more active. Pain located in lateral aspect of knee and restriction in motion anteriorly and medial hamstring. Home Exercise Home Exercise Compliance Compliant Home Exercise Reviewed Yes Objective Other/Pertinent Objective Knee ROM: -L 0-122 -R 0-5-95 mild/mod joint effusion/ swelling left knee Functional Test Performed & Score LEFS: 42/80 pre-op LEFS 07/01/22: post-op Patient Instructed in Risks/Benefits Yes Therapeutic Exercise Therapeutic Exercise Minutes (minutes) 25 Therapeutic Exercise: To Restore Bike 1/2 revolutions 5 min for Functional Status ROM up to full revolutions seat height 5 Leg press 100lb 3x10 Leg extension 1.5 plate: progressed to eccentrics today 2x10 Standing hip abd 1 plate 2x10 Hamstring curl 2.5 plates 2x10 Step down 6 w/uni handrail 6x2 with good eccentric control today SL balance: 30 sec without UE support Squat at bar up to 90 degrees with equal WB 2x10 Strap stretch: supine hamstring, adductor and ITB Educated on machines to use with her goal of returning to [address] coming up this August Manual Therapy Techniques Manual Therapy Minutes (minutes) 14 Manual Therapy Techniques Supine milking massage for swelling and pain management: distal to proximal Supine TrP release distal quad Scar mobilization Prone medial and lateral hamstring TrP release (more tone lateral hamstring) Treatment Minutes Timed Code Treatment Minutes 39 Total Treatment Time 39 Billing Units Manual Therapy Units 1 Therapeutic Exercise Units 2 Assessment/Impression Assessment/Impression Pt 6 weeks s/p R TKA with current ROM to 0-5-95 (pre surgery ROM 0-102). Encouraged patient that setbacks may happen with post-operative rehab, particularly if she is on her feet more and generally more active. Advised to take it easy the next couple of days and focus on HEP/icing and elevating. Anticipate current pain to dissipate with self management techniques. Main limitations are end range knee extension/flexion and eccentric quad control with descending stairs. She remains appropriate for skilled PT to progress towards remaining functional goals. Anticipate 1 more session to address remaining impairments, finalization of HEP, review of gym based equipment and d/c plan with continuation of HEP. Plan of Care Physical Therapy Goals New Goals post-op: 1. Pt. will be indep. with HEP for self maintenance in 8 weeks. 2. Pt. will be able to walk without assistive device with little to no limp in 8 weeks. 3. Pt. will demonstrate improved quad and core strength to WNL in 8 weeks. 4. Pt. will demonstrate functional knee AROM (0-120) to allow regular ADL's in 8 weeks. Daily Plan of Care Change in Frequency Daily Plan of Care Comments 1 more session for d/c planning Recertification Information Initial Certification Date 04/24/22 Most Recent Visit 07/30/22 Recertification Start Date 07/30/22 Recertification Due Date 09/28/22 Reasons to Continue Skilled Therapy Anticipate 1 more session to finalize HEP and address end ROM restrictions as well as eccentric quad strength deficits with difficulty descending stairs Rehabilitation Potential excellent Continued Plan of Care and Interventions Gait/stair training, therapeutic exercises, neuromuscular re-education, manual therapy Provider Signature Shows Agreement With POC & Medical Necessity Physician Comment/Change Comment or Changes Physician NPI Number #
== END 2022-08-05 12:47 | disposition home or self-care (01) ==
PROVIDERS: Visit Provider Orthopaedic Surgery Sports Medicine
DX: M75.81 Other shoulder lesions, right shoulder (principal); Z51.89 Encounter for other specified aftercare
CPT/HCPCS: 97110; 97112; 97116; 97140; 97161; 97164; 97535